=== PATIENT | female | born 1955 | race Caucasian/White ===

== ENCOUNTER 2022-01-02 09:19 | Day surgery (SDC) | payer OTHER ==
--- NOTE | 2021-12-30 12:39 | EKG ---
Test Date: 2021-12-29 Test Time: 14:37:24 Transportation Specialist: CAMILA MEASUREMENT RESULTS: Intervals: Rate: 75 IL: 222 QRSD: 86 QT: 370 QTc: 413 [place]: P: 48 IL: 222 QRS: 3 T: 65 INTERPRETIVE STATEMENTS: Sinus rhythm with 1st degree AV block Otherwise normal ECG No previous ECG available for comparison Electronically Signed On 12-30-21 12:37:12 CDT by Carlos Jay
[2022-01-02] MEDS ORDERED: NA CHLORIDE 0.9% 1,000 ML ONE (09:44)
[2022-01-02] MEDS ORDERED: MIDAZOLAM HCL 2 MG/2 ML INJ ONE (10:57)
[2022-01-02] MEDS ORDERED: ONDANSETRON 4 MG/2 ML VIAL ONE (10:57)
[2022-01-02] MEDS ORDERED: LIDOCAINE 2% MPF 5 ML VIAL ONE (10:57)
[2022-01-02] MEDS ORDERED: FENTANYL CITR 100 MCG/2 ML ONE (10:57)
[2022-01-02] MEDS ORDERED: propofoL 200 MG/20 ML VIAL IV ONE (10:57)
[2022-01-02] MEDS ORDERED: LIDOCAINE 1% W/EPI 1:100,000 10 ML VIAL ONE (11:09)
--- NOTE | 2022-01-02 13:59 | P.OP ---
News Department Intern: NONE,NONE Preoperative diagnosis: Malignant neoplasm skin of the nose Postoperative diagnosis: Basal cell carcinoma, skin of nose Primary procedure: Wide local excision nose, final defect 15 x 13 mm Secondary procedure: Complex closure, 2 cm Anesthesia: General via LMA Estimated blood loss: 10 mL Specimen: A. nose. B. new peripheral margin. C. new deep margin Findings: final margins negative Operative Technique: After adequate plane of anesthesia, the operative site was cleaned with alcohol. The nose was injected with 1% lidocaine with epinephrine. The nose and midface was prepped with Betadine and draped in sterile fashion. Initial exam demonstrated a approximately 5 mm depressed scar along the tip of the nose. There was no gross tumor noted and decision was made to perform a narrow excision. A 15 blade scalpel was used to incise full-thickness through the skin around the scar, a suture was placed at the superior-most aspect of the specimen indicating 12:00 and sent to pathology for frozen section. The pathologist noted the biopsy site and scar with significant number of nests of basal cell carcinoma extending to all of the peripheral margins and the deep margin. Need for additional excision was noted. A approximately 3 cm new margin was designed around the initial surgical site. 15 blade scalpel was used to incise through the full-thickness of the skin it from the underlying tissues. A suture was placed at the superior- most aspect indicating 12:00. The specimen was sent as new peripheral margin to pathology for frozen section. The deep margin was examined and there was no evidence of gross tumor. However due to the initial specimen, the alveolar and fatty tissue was elevated off of the domes of the bilateral lower lateral cartilages. The true margin was marked with a surgical marker and sent to pathology for frozen section. Hemostasis was obtained with needlepoint e lectrocautery. The pathologist confirmed that the peripheral and deep margins were negative on these second and third specimens. The defect measured 13 x 15 mm encompassing the majority of the tip of the nose and the full-thickness skin including the perichondrium. Reconstruction options were considered and due to the bulbous appearance on the tip of the nose, I placed 2 5-0 PDS sutures in the domes of the lower lateral cartilage in order to narrow the width of the defect. I widely elevated the skin surrounding the defect, extending about 2 cm superiorly and laterally and 1cm inferiorly, li mited but the anatomy of the nose. The skin was then submitted to perform a vertical incision from the O shaped defect using 4-0 Vicryl buried sutures. Resulted in significant closure and reduction of tension on the wound. A small burrows triangle was excised using needlepoint Bovie electrocautery from the inferior aspect of the incision. The skin was then closed in a running fashion using 5-0 fast absorbing gut. Overall the cosmetic appearance of the nose was very favorable with appropriate narrowing of the nasal tip. The surrounding skin was cleaned and dried and a triple antibiotic ointment was applied to the incision. The procedure was concluded and the patient was returned to care of anesthesia for awakening extubation in the operating room which proceeded without difficulty. Complications: None Implants: None Fluids & blood products: crystalloid, see anesthesia record Transferred to: Recovery Room Condition: Good
[2022-01-02] MEDS ORDERED: ACETAMINOPHEN 325 MG TABLET ONE (14:35)
[2022-01-02 15:21] VITALS: TEMP 97
[2022-01-02 15:23] VITALS: BP 156/82; O2SAT 97
== END 2022-01-02 15:00 | disposition home or self-care (01) ==
LOC: OR 09:19
PROVIDERS: ATTEND Otolaryngology
PROC: 0HB1XZZ Excision of Face Skin, External Approach (ICD-10-PCS; principal; 2022-01-02 11:00)
DX: C44.311 Basal cell carcinoma of skin of nose (principal); Z20.822 Contact with and (suspected) exposure to COVID-19
CPT/HCPCS: 93005; 82947 ×2; 88331; 88332; 88305; 11646; J2704; J2250; J3010; J7030; J2405